=== PATIENT | male | born 1980 | race Two or more races ===

== ENCOUNTER 2019-07-08 22:10 | Emergency (ER) | payer SELFPAY ==
[~2019-07-08] VITALS: Ht 177.8 cm; Wt 72.0 kg
[2019-07-08 23:54] LABS: BASOPHILS % 0.8 % (0.0-2.0); EOSINOPHILS % 1.1 % (0.0-5.0); HEMATOCRIT. 43.7 % (42.0-52.0); HEMOGLOBIN. 14.6 g/dL (14.0-18.0); LYMPHOCYTES % 39.4 % (20.0-50.0); MEAN CORPUSCULAR HEMOGLOBIN 26.5 pg (28.0-32.0); MEAN CORPUSCULAR VOLUME 79.5 fL (80.0-94.0); MEAN PLATELET VOLUME 8.6 fl (7.4-10.4); MONOCYTES % 8.9 % (2.0-8.0); NEUTROPHILS % 49.8 % (40.0-76.0); PLATELET 184 x1000/uL (130-400); RED CELL DISTRIBUTION WIDTH 14.5 % (11.6-14.6)
[2019-07-08 23:55] LABS: CHLORIDE 106 mEq/L (98-107)
[2019-07-09 05:00] VITALS: BP 118/82
== END 2019-07-09 05:22 | disposition home or self-care (01) ==
LOC: ER 22:10
DX: R07.9 Chest pain, unspecified (principal); E11.9 Type 2 diabetes mellitus without complications
CPT/HCPCS: 36415; 71045; 80053; 83880; 84484; 85025; 93005; 99285